=== PATIENT | male | born 1985 | race Caucasian/White ===

== ENCOUNTER 2017-08-30 22:46 | Inpatient (IN) | payer BC ==
[~2017-08-30] VITALS: Ht 185.4 cm; Wt 86.6 kg
--- NOTE | 2017-08-30 23:00 | NUR ---
PT AMBULATORY TO ER BED 11. PT BIB SELF FROM HOME C/O ABD PAIN WITH N/V X 1 DAY. PT PLACED IN GOWN AND ON APPRENTICE LINEMAN THIRD STEP. VSS/RESP EVEN UNLABORED/NAD NOTED/SKIN WARM AND DRY/AFEBRILE/AOX4. AWAITING MD KHAN.
[2017-08-31] MEDS ORDERED: ONDANSETRON HCL/PF 4 MG/2 ML VIAL ONE ×2 (00:13→02:57)
[2017-08-31] MEDS ORDERED: KETOROLAC TROMETHAMINE 15 MG/ML VIAL ONE (00:13)
[2017-08-31] MEDS ORDERED: MORPHINE SULFATE INJ 4 MG/ML DISP.SYRIN ONE ×2 (00:14→02:57)
--- NOTE | 2017-08-31 00:24 | NUR ---
20G IV TO L AC X 1 ATTEMPT USING ASEPTIC TECH, BLOOD HANDED OVER TO THE LAB AT THE BEDSIDE. IV FLUSHES EASILY WITH NS, NO S/S INFILTRATION NOTED AT THIS TIME.
--- NOTE | 2017-08-31 00:25 | NUR ---
PT TO CT VIA STRETCHER, VSS.
[2017-08-31 00:28] LABS: BASOPHILS % (AUTO) 0.3 % (0.0-2.0); EOSINOPHILS % (AUTO) 0.3 % (0.0-6.0); HEMATOCRIT 42 % (39-51); HEMOGLOBIN 14.3 g/dL (13.5-17.5); LYMPHOCYTES # (AUTO) 0.9 /CMM (0.8-4.8); MEAN CORPUSCULAR HGB CONC 34 g/dl (31.0-36.0); MEAN CORPUSCULAR VOLUME 93 fL (80-96); MONOCYTES # (AUTO) 0.5 /CMM (0.1-1.30); NEUTROPHILS # (AUTO) 5.9 /CMM (1.8-8.9); NEUTROPHILS % (AUTO) 80.4 % (43.0-81.0); PLATELET COUNT (AUTO) 220 /CMM (150-450); RDW COEFFICIENT OF VARIATION 11.9 (11.5-15.0); RED BLOOD CELL COUNT(AUTO) 4.49 MIL/uL (4.5-6.0); WHITE BLOOD COUNT (AUTO) 7.3 K/uL (4.3-11.0)
[2017-08-31] MEDS ORDERED: KETOROLAC TROMETHAMINE INJ 30 MG/ML VIAL IV ONE (00:30)
[2017-08-31] MEDS ORDERED: IV NS 0.9% 1,000 ML BAG IV ONE (00:30)
[2017-08-31] MEDS ORDERED: ONDANSETRON HCL/PF 4 MG/2 ML VIAL IVP ONE (00:30)
[2017-08-31] MEDS ORDERED: MORPHINE SULFATE INJ 2 MG/ML DISP.SYRIN IV ONE ×2 (00:30→02:30)
--- NOTE | 2017-08-31 00:40 | NUR ---
PT BACK FROM CT.
--- NOTE | 2017-08-31 00:43 | NUR ---
URINE SPECIMEN OBTAINED AND SENT TO THE LAB.
[2017-08-31 00:44] LABS: CALCIUM, SERUM 9.8 mg/dL (8.5-10.1); POTASSIUM 3.7 mmol/L (3.5-5.1)
[2017-08-31] MEDS ORDERED: HYDROMORPHONE INJ 2 MG/ML DISP.SYRIN ONE (00:44)
[2017-08-31 00:51] LABS: ALBUMIN 4.4 g/dL (3.4-5.0); BILIRUBIN,DIRECT 0.1 mg/dL (0.0-0.2); BILIRUBIN,TOTAL 0.8 mg/dL (0.2-1.0)
[2017-08-31 00:57] LABS: INR 0.97 (0.87-1.13)
--- NOTE | 2017-08-31 02:36 | NUR ---
CALLED FOR ORTHO CONSULT. AWAITING CALL BACK Addendum: 08/31/17 at 0251 by [facility] CONSULT
--- NOTE | 2017-08-31 02:50 | NUR ---
PT IS GOING TO [facility]-1
[2017-08-31 02:58] LABS: BILIRUBIN,URINE NEGATIVE (NEGATIVE); BLOOD, URINE TRACE-INTA Ery/uL (NEGATIVE); COLOR,URINE YELLOW (YELLOW); KETONES,URINE 2+ (NEGATIVE); LEUKOCYTE ESTERASE ,URINE NEGATIVE (NEGATIVE); NITRITE, URINE NEGATIVE (NEGATIVE); PH,URINE 5.5 (5.0-8.0); PROTEIN,URINE NEGATIVE (NEGATIVE); UGLUCOSE NEGATIVE (NEGATIVE); UROBILINOGEN,URINE 0.2 EU/dL (0.2)
--- NOTE | 2017-08-31 03:04 | NUR ---
MD GAVE VERBAL ORDER FOR ZOFRAN 4 MG IVP. MD PUT ORDER IN AND RN UNABLE TO CHART ON IT, MD MADE AWARE. NO CHANGES TO ORDER NOTED.
--- NOTE | 2017-08-31 03:14 | NUR ---
Jacob Pineda MD called. page sent for to consult
[2017-08-31 03:20] LABS: APPEARANCE,URINE CLEAR (CLEAR); BACTERIA,URINE None seen /HPF (None Seen); RBC,URINE 0-2 /HPF (0-2); SQUAMOUS EPITHELIAL CELL,UR Few /HPF (None Seen); WBC,URINE 0-2 /HPF (0-3)
--- NOTE | 2017-08-31 03:26 | NUR ---
REPORT GIVEN TO SU
[2017-08-31] MEDS ORDERED: ONDANSETRON HCL/PF - ER 4 MG/2 ML VIAL IV ONE (03:30)
--- NOTE | 2017-08-31 03:35 | NUR ---
Called Jacob Pineda MD for general surgery, paged
[2017-08-31] MEDS ORDERED: IV D5/0.45 NACL 1,000 ML IV PRN (05:08)
--- NOTE | 2017-08-31 05:15 | NUR ---
PT TO [facility] VIA STRETCHER WITH EMT. NATHANS.
[2017-08-31 05:30] VITALS: BP 131/75
[2017-08-31] MEDS ORDERED: ACETAMINOPHEN 325 MG TABLET PO PRN (05:30)
[2017-08-31] MEDS ORDERED: MORPHINE SULFATE INJ 2 MG/ML DISP.SYRIN IV PRN (05:30)
[2017-08-31] MEDS ORDERED: HYDROCODONE/APAP 5/325MG 1 EACH TABLET PO PRN (05:30)
[2017-08-31] MEDS ORDERED: MAGNESIUM HYDROXIDE 30 ML UDC PO PRN (05:30)
[2017-08-31] MEDS ORDERED: Z GUARD REMEDY 2 OZ OINT TP PRN (05:30)
[2017-08-31] MEDS ORDERED: ONDANSETRON HCL/PF 4 MG/2 ML VIAL IVP PRN (05:30)
[2017-08-31] MEDS ORDERED: HYDROCODONE/APAP 10/325MG 1 EA TABLET PO PRN (05:30)
[2017-08-31] MEDS ORDERED: MAG HYDROX/AL HYDROX/SIMETH 30 ML UDC PO PRN (05:30)
[2017-08-31] MEDS: IV NS 0.9% 1,000 ML IV SCH ×2 (05:33→15:35)
--- NOTE | 2017-08-31 05:40 | NUR ---
MS RN NOTE RECEIVED PATIENT FROM ER FOR ADMISSION, PATIENT IS ALERT AND ORIENTEDX4, AMBULATORY, DENIES RESPIRATORY DISTRESS AND COMPLAINS OF MILD TENDERNESS ON ABDOMEN. IV ON LEFT AC IS PATENT AND INTACT. SKIN IS INTACT, NO EDEMA PRESENT. SRX2, BED IN LOW POSITION, CALL LIGHT WITHIN REACH, WILL CONTINUE TO MONITOR PATIENT.
--- NOTE | 2017-08-31 07:10 | NUR ---
MS RN NOTE PATIENT IS SLEEPING IN BED COMFORTABLY, NO ACUTE DISTRESS PRESENT SINCE THE ADMISSION. ENDORSED TO DAY SHIFT NURSE FOR NOEL.
--- NOTE | 2017-08-31 07:20 | NUR ---
ms rn initial notes Received patient in bed, asleep, head of bed elevated, no SOB or distress noted. On room air and tolerated well. Alert and oriented x 4, verbally responsive and able to make needs known. NPO at this time as ordered. IV intact and patent with IVF infusing well. Call light with in patient reach, will continue to monitor accordingly.
[2017-08-31 07:36] LABS: THYROID STIMULATING HORMONE 1.264 uIU/mL (0.358-3.74)
[2017-08-31 08:00] VITALS: BP 125/73
[2017-08-31] MEDS ORDERED: MORPHINE SULFATE INJ 4 MG/ML DISP.SYRIN IV PRN ×2 (08:17→20:17)
[2017-08-31] MEDS: PANTOPRAZOLE 40 MG VIAL IV SCH (08:51)
[2017-08-31] MEDS ORDERED: DIATR MEGLU/DIATRIZOATE SODIUM 30 ML BOTTLE (GASTROGRAPHIN) ONE (10:46)
[2017-08-31] MEDS: ONDANSETRON HCL/PF 4 MG/2 ML VIAL IV PRN ×3 (14:46→22:57)
[2017-08-31 16:00] VITALS: BP 132/70
[2017-08-31] MEDS ORDERED: IOHEXOL-300 100 ML VIAL IV ONE (16:02)
--- NOTE | 2017-08-31 18:39 | NUR ---
ms rn notes Received a verbal order from Dr. Miller Ativan 0.5 mg IVP q12hrs prn. All orders soraya out and noted.
--- NOTE | 2017-08-31 19:08 | NUR ---
ms rn closing notes All needs provided, attended, and anticipated, endorsed to next shift RN to continue care. Call light with in patient reach. Patient in stable condition at this time.
--- NOTE | 2017-08-31 19:15 | NUR ---
MS RN OPENING NOTE Patient was seen sitting upright in bed, AAOx4, breathing on RA with no SOB, and no signs of acute distress. NS at 100ml/hr is running through the left AC. NG tube is connected to low-intermittent suction with current output noted at 400ml of greenish-brown drainage. Patient ambulated to the bathroom steadily in my presence. Bed is in the low/locked position, two side rails up, and call luna within reach. Patient has no immediate needs at this time. Will continue to monitor.
[2017-08-31 20:00] VITALS: BP 143/65
[2017-08-31] MEDS ORDERED: LEVOFLOXACIN 750 MG /D5W 150ML 150 ML IV ONE (20:30)
--- NOTE | 2017-08-31 20:30 | NUR ---
MS RN NOTE - Info ok to give to parents Per patient, it is okay to provide medical information/updates to parents (Mom's name Nika Paez).
[2017-08-31] MEDS: LEVOFLOXACIN 750 MG /D5W 150ML 750 MG in PREMIX 1 EA IV SCH (20:42)
[2017-08-31] MEDS: LORAZEPAM INJ 2 MG/ML VIAL IV PRN (22:57)
--- NOTE | 2017-08-31 23:00 | NUR ---
MS RN NOTE - Zofran, Ativan Patient, NPO with sm bowel obstruction, reporting nausea, anxiousness, and difficulty sleeping. Patient requested Zofran and Ativan. IV Zofran 4mg given and IV Ativan 0.5mg given as ordered (prn). Will continue to monitor.
--- NOTE | 2017-09-01 | NUR ---
MS RN NOTE - IV fluids Patient asked about having his IV fluids changed to include "something like glucose" for nutrition, since patient is NPO. He voiced concerns about feeling weak, and not having eaten for >24 hrs. Per Regina Archuleta ([employer]), D5 IV fluids are contraindicated for sm bowel obstruction. Instead, Regina ordered AccuChecks to track blood sugar, and PRN dextrose for BG < 60.
[2017-09-01] MEDS ORDERED: DEXTROSE 50%-WATER 50 ML DISP.SYRIN IV PRN (00:30)
[2017-09-01] MEDS ORDERED: INSULIN REGULAR, HUMAN 100 UNIT/ML 3 ML VIAL SQ PRN (00:30)
[2017-09-01] MEDS: IV NS 0.9% 1,000 ML IV SCH ×2 (03:19→11:45)
[2017-09-01] MEDS: BLOOD SUGAR DIAGNOSTIC 1 EACH STRIP IN SCH ×2 (06:00→11:55)
--- NOTE | 2017-09-01 07:25 | NUR ---
ms rn initial notes Received patient in bed, awake, head of bed elevated, no SOB or distress noted. On room air and tolerated well. NGT on the left nares attached to low intermittent suctioning. IV intact and patent with IVF infusing well. No complaint of pain or discomfort at this time. Alert and oriented x 4, verbally responsive and able to make needs known. Call light with in patient reach, will continue to monitor accordingly.
[2017-09-01 07:33] LABS: BASOPHILS % (AUTO) 0.3 % (0.0-2.0); EOSINOPHILS % (AUTO) 0.7 % (0.0-6.0); HEMATOCRIT 38 % (39-51); HEMOGLOBIN 12.9 g/dL (13.5-17.5); LYMPHOCYTES % (AUTO) 16.2 % (20.0-44.0); MEAN CORPUSCULAR HGB CONC 34 g/dl (31.0-36.0); MEAN CORPUSCULAR VOLUME 94 fL (80-96); MONOCYTES # (AUTO) 0.7 /CMM (0.1-1.30); MONOCYTES % (AUTO) 11.2 % (2.0-12.0); NEUTROPHILS # (AUTO) 4.4 /CMM (1.8-8.9); NEUTROPHILS % (AUTO) 71.6 % (43.0-81.0); PLATELET COUNT (AUTO) 203 /CMM (150-450); RDW COEFFICIENT OF VARIATION 12.3 (11.5-15.0); RED BLOOD CELL COUNT(AUTO) 4.06 MIL/uL (4.5-6.0); WHITE BLOOD COUNT (AUTO) 6.1 K/uL (4.3-11.0)
[2017-09-01 07:39] LABS: CALCIUM, SERUM 8.5 mg/dL (8.5-10.1); MAGNESIUM 1.9 mg/dL (1.8-2.4); PHOSPHORUS 2.8 mg/dL (2.5-4.9)
--- NOTE | 2017-09-01 07:41 | NUR ---
MS RN CLOSING NOTE Patient was seen in bed AAOx4, breathing on RA with no SOB, and no signs of acute distress. Patient had approximately 350 ml output from NG tube overnight (greenish-brown drainage). NS at 100ml/hr is running through the left AC. Patient slept intermittently throughout the night with no complaints and remains in stable condition. Call luna within reach. Patient care has been endorsed to day shift RN.
[2017-09-01 08:00] VITALS: BP 132/67
[2017-09-01] MEDS: PANTOPRAZOLE 40 MG VIAL IV SCH (08:08)
[2017-09-01] MEDS: ONDANSETRON HCL/PF 4 MG/2 ML VIAL IV PRN (11:45)
--- NOTE | 2017-09-01 11:56 | NUR ---
ms rn notes Blood sugar checked 83 no coverage given.
--- NOTE | 2017-09-01 13:26 | NUR ---
ms rn notes Sky Durand NP came seen and examined the patient and ordered to remove NGT. Explained about possible surgery today and made aware. All orders carried out and noted.
[2017-09-01] MEDS ORDERED: BUPIVACAINE 0.25% 75 MG/30 ML VIAL ONE (14:27)
[2017-09-01] MEDS ORDERED: LIDOCAINE 0.5% HCL 50 ML VIAL ONE (14:27)
[2017-09-01] MEDS ORDERED: HYDROMORPHONE INJ 2 MG/ML DISP.SYRIN ONE (14:36)
[2017-09-01] MEDS ORDERED: MIDAZOLAM HCL 2 MG/2ML VIAL ONE (14:39)
--- NOTE | 2017-09-01 15:10 | NUR ---
ms rn notes Dr. Francois iPneda came seen and examined the patient and explained the plan to the patient and patient is amenable. No surgery for now and is patient able to pass BM MD will give patient clear liquid diet. Will continue to monitor accordingly.
--- NOTE | 2017-09-01 15:20 | NUR ---
ms rn notes Patient able to have a BM and MD made aware and ordered cleared liquid diet.
[2017-09-01 16:00] VITALS: BP 139/76
--- NOTE | 2017-09-01 17:28 | NUR ---
ms rn notes informed MD about accucheck on the patient and made aware about patient able to pass pooped twice and Dr. reynolds ordered clear liquid diet and okay to d/c accucheck. All orders carried out and noted.
--- NOTE | 2017-09-01 19:25 | NUR ---
MS RN OPENING NOTE Patient was seen sitting in bed AAOx4, breathing comfortably on RA, with no signs of acute distress. NG tube was removed during day shift, and the patient has been tolerating a clear liquid diet and had two bowel movements throughout the day. NS at 100ml/hr is running through the left AC. Bed is in the low/locked position, two side rails up, and call luna within reach. Patient has no immediate needs or concerns at this time. His significant other is currently at the bedside. Will continue to monitor.
--- NOTE | 2017-09-01 19:30 | NUR ---
ms rn closing notes All needs provided, attended, and anticipated. Patient in stable condition. Endorsed to next shift RN to continue care. Call light with in patient reach.
[2017-09-01 20:00] VITALS: BP 121/71
--- NOTE | 2017-09-01 20:15 | NUR ---
MS RN NOTE - Shower Patient was given permission to shower. IV was wrapped in Kerlix prior. The GERMAN TUTOR was made aware and was asked to stand near the door; the patient also had his significant other who accompanied him in the shower room for assistance. The patient ambulates independently and is steady on his feet. The patient was free from falls during and after showering. IV was unwrapped and reconnected to NS at 100ml/hr.
[2017-09-01] MEDS: LEVOFLOXACIN 750 MG /D5W 150ML 750 MG in PREMIX 1 EA IV SCH (20:29)
[2017-09-01] MEDS: LORAZEPAM INJ 2 MG/ML VIAL IV PRN (23:28)
--- NOTE | 2017-09-01 23:30 | NUR ---
MS RN NOTE -Ativan Patient requested Ativan for sleep, stating that he has a difficult time sleeping in the hospital, despite closing the door and darkening the room. IV 0.5mg of Ativan given. Will continue to monitor.
[2017-09-02] MEDS: IV NS 0.9% 1,000 ML IV SCH ×2 (04:01→08:21)
--- NOTE | 2017-09-02 06:56 | NUR ---
MS RN CLOSING NOTE Patient was seen sitting up in bed AAOx4, breathing comfortably on RA with no SOB, and no signs of acute distress. Patient continues to tolerate clear liquids with no n/v. NS at 100ml/hr is running through the left AC. Patient slept well overnight with no complications and remains in stable condition. Call luna within reach. Patient care has been endorsed to day shift nurse.
--- NOTE | 2017-09-02 07:15 | NUR ---
ms rn initial notes Received patient in bed, awake, head of bed elevated, no SOB or distress noted. On room air and tolerated well. IV intact and patent with IVF infusing well. No complaint of pain or discomfort at this time. Alert and oriented x 4, verbally responsive and able to make needs known. Per patient he is still able to pass gas. Call light with in patient reach, will continue to monitor accordingly.
[2017-09-02 08:00] VITALS: BP 143/72
[2017-09-02] MEDS: PANTOPRAZOLE 40 MG VIAL IV SCH (08:19)
[2017-09-02] MEDS: ENSURE ENLIVE CHOC 237 ML CAN PO SCH ×2 (12:00→17:10)
[2017-09-02 16:00] VITALS: BP 127/67
--- NOTE | 2017-09-02 19:14 | NUR ---
ms finance accounting internship notes Discharge instructions given to patient and able to understand instructions. patient able to tolerate soft diet with no complaint of pain or discomfort. Signed discharge paper and belonging list with no items missing. Discontinued IV and pressured applied to prevent bleeding. Skin is intact. No flu vaccine given due to out of season and patient is <65 years old for PNA vaccine. gauri kwaniend came to machine operator picker the patient. Health teaching and education rendered. Informed patient to follow up with primary health care physician in 1-2 weeks. Patient left via ambulatory in stable condition. MD and charge nurse aware.
== END 2017-09-02 18:45 | disposition home or self-care (01) | DRG 390 ==
LOC: ER 22:51 → MED 08-31 03:06
PROVIDERS: ADMIT Registered Nurse; ATTEND Registered Nurse
DX: K56.600 Partial intestinal obstruction, unspecified as to cause (principal); Z80.0 Family history of malignant neoplasm of digestive organs; R19.00 Intra-abdominal and pelvic swelling, mass and lump, unspecified site; D64.9 Anemia, unspecified; K21.9 Gastro-esophageal reflux disease without esophagitis; R73.9 Hyperglycemia, unspecified; R59.0 Localized enlarged lymph nodes
CPT/HCPCS: 36415; 71045-TC; 80048-TC; 80061-TC; 80076-TC; 81000-TC; 82962-TC; 83690-TC; 83735-TC; 84100-TC; 84443-TC; 85025-TC; 85730-TC; 86850-TC; A4216; A4606; C9113; J1170; J1815; J1885; J1956; J2060; J2250; J2270; J2405; J3490; J7030; Q9963; Q9967; Z7610